=== PATIENT | male | born 1970 | race Caucasian/White ===

== ENCOUNTER → 2016-08-28 | Outpatient (CLI) | payer OTHER ==
[~2016-08-28] MED LIST: ACETTAB15 PO; AFRIN; AMLO-110 PO; ASPI81TA28 PO; ATR25 PO; BUPR-79 PO; CLR10 PO; DIPH25CA65 PO; GABA-112 PO; LISI20TA3 PO; MONT1TAB3 PO; NYSCR30 EXT; OXCA600T PO; OXCA600T2 PO; PANT40TA PO; PRAS1CAP2 PO; PRVC/40 PO; PSEU60TA80 PO
[2016-08-28 13:26] LABS: ESTIMATED AVERAGE GLUCOSE 111 mg/dl; HA1C FLAG Normal (Normal)
--- NOTE | 2016-08-28 13:39 | DIAGNOSTIC IMAGING REPORT ---
LEFT ANKLE MIN 3 VIEWS ROUTINE, LEFT FOOT MIN 3 VIEWS ROUTINE CLINICAL HISTORY: PRE-OP COMPARISON STUDY: None. FINDINGS: Soft tissue swelling within the left ankle. No fracture or dislocation within the left ankle or left foot. The Lisfranc joint remains intact. Greater than expected sclerosis within the calcaneus at the subtalar joint. IMPRESSION: Greater than expected sclerosis within the calcaneus at the subtalar joint. This raises the possibility of subtalar coalition. CT may help for confirmation if clinically wanted. Electronically signed by: Eddie Cartwright M.D. 08/28/2016 1:38 PM Dictated Date/Time: 08/28/2016 1:33 PM
[2016-08-28 13:53] LABS: BLOOD UREA NITROGEN 16 mg/dl (7-18); BUN/CREATININE RATIO 14.2 (10-20); CALCIUM 8.9 mg/dl (8.5-10.1); CARBON DIOXIDE 29 mmol/L (21-32); CHLORIDE 106 mmol/L (98-107); GLUCOSE 97 mg/dl (70-99); POTASSIUM 3.7 mmol/L (3.5-5.1); SODIUM 142 mmol/L (136-145)
--- NOTE | 2016-08-28 14:14 | DIAGNOSTIC IMAGING REPORT ---
CHEST 2 VIEWS ROUTINE HISTORY: PRE-OP COMPARISON: None. FINDINGS: A few bibasilar linear densities suggesting subsegmental atelectasis. There are low lung volumes. Cardiac silhouette is top normal in size. No pleural effusions. No pneumothorax. IMPRESSION: Low lung volumes with bibasilar subsegmental atelectasis. Otherwise, no acute process within the chest. Electronically signed by: Eddie Cartwright M.D. 08/28/2016 2:12 PM Dictated Date/Time: 08/28/2016 2:11 PM
== END | disposition home or self-care (01) ==
LOC: C.RAD 12:33
PROVIDERS: ATTEND Podiatrist Foot & Ankle Surgery
DX: Z01.811 Encounter for preprocedural respiratory examination (principal); Z01.812 Encounter for preprocedural laboratory examination; M20.12 Hallux valgus (acquired), left foot; M85.872 Other specified disorders of bone density and structure, left ankle and foot

== ENCOUNTER → 2016-08-31 | Outpatient (CLI) | payer OTHER ==
[~2016-08-31] MED LIST changes: +ACETTAB14 PO; -ACETTAB15 PO
--- NOTE | 2016-08-31 17:39 | DIAGNOSTIC IMAGING REPORT ---
MRI OF THE LEFT FOREFOOT WITHOUT IV CONTRAST CLINICAL HISTORY: Left foot pain. COMPARISON STUDY: Radiographs of the left foot dated 08/28/2016. TECHNIQUE: MRI of the left forefoot is performed utilizing various T1 and T2-weighted sequences in the axial, sagittal, and coronal planes. IV contrast was not administered for this examination. FINDINGS: There is no MRI evidence of fracture or osteonecrosis in the left forefoot. There is mild quintus varus deformity of the fifth metatarsophalangeal joint. There is mild degenerative change with marrow edema and cystic formation within the fifth metatarsal head. The remaining joint spaces of the forefoot appear preserved. There is mild edema within the lateral sesamoid at the first metatarsophalangeal joint with drop in signal on the T1 sequence suggesting sesamoiditis. The overlying soft tissues are within normal limits. The visualized flexor and extensor tendons appear maintained. The regional musculature is normal in bulk and signal intensity. Mild marrow edema is noted at the calcaneonavicular joint on survey images of the whole foot. IMPRESSION: 1. Mild quintus varus deformity at the fifth metatarsophalangeal joint with associated marrow edema and cyst formation in the fifth metatarsal head. 2. Findings suggest lateral sesamoiditis at the first metatarsophalangeal joint. 3. Mild marrow edema and degenerative change is seen at the calcaneonavicular joint on survey images of the whole foot. Dictated: 08/31/2016 5:02 PM Transcribed: 08/31/2016 5:39 PM Mel Electronically signed by: Vitor Avalos M.D. 08/31/2016 5:49 PM Dictated Date/Time: 08/31/2016 5:02 PM
== END | disposition home or self-care (01) ==
LOC: C.MRI 14:35
PROVIDERS: ATTEND Podiatrist Foot & Ankle Surgery
DX: M21.862 Other specified acquired deformities of left lower leg (principal); R60.0 Localized edema

== ENCOUNTER → 2016-09-11 | Outpatient (CLI) | payer OTHER ==
[~2016-09-11] MED LIST changes: -ACETTAB14 PO; +ACETTAB15 PO
--- NOTE | 2016-09-11 10:29 | DIAGNOSTIC IMAGING REPORT ---
CT OF THE LEFT ANKLE/FOOT CT DOSE: 172.94 mGy.cm HISTORY: CT left ankle. Abnormal MRI. LEFT SUBTO RAL JOINT TECHNIQUE: Multiaxial CT images of the left ankle were performed and reformatted in the sagittal and coronal plane without the use of contrast. COMPARISON: MRI dated 08/31/2016 FINDINGS: All osseous structures align appropriately. The subtalar joint shows a slight degree of sclerosis on a degenerative basis but there is no evidence for tarsal correlation. Mild degenerative change of the calcaneal talar joint. No significant subchondral cyst formation is present. Joint spaces are reasonably well-preserved. There is no evidence of bony ankylosis. IMPRESSION: 1. Minimal scattered degenerative change. 2. No evidence for tarsal correlation. 3. Scattered minimal degenerative sclerotic changes of the articular services as described again an early degenerative basis. Electronically signed by: Brian Sanchez M.D. 09/11/2016 10:28 AM Dictated Date/Time: 09/11/2016 10:08 AM
== END | disposition home or self-care (01) ==
LOC: C.CTS 09:39
PROVIDERS: ATTEND Podiatrist Foot & Ankle Surgery
DX: M89.8X7 Other specified disorders of bone, ankle and foot (principal)

== ENCOUNTER 2016-09-26 05:14 | Day surgery (SDC) | payer OTHER ==
[2016-09-18 15:25] VITALS: BMI 39.0
--- NOTE | 2016-09-22 16:18 | HISTORY & PHYSICAL EXAMINATION ---
DATE OF ADMISSION: 09/26/2016 PREOPERATIVE HISTORY AND PHYSICAL HISTORY OF PRESENT ILLNESS: A 46-year-old male presents for preop evaluation, requesting surgery due to painful tailor's bunion, condition is located in left foot, described as aching, sore, tender and throbbing. Condition was first noticed over a year ago. Denies any recent exposure, persistent pain event or history for this condition. Condition is graded as an 8 on a 10 point scale on the left and gradually worsening over time. Associated signs and symptoms include swelling and tenderness. He has had conservative care including strapping, cast, immobilization, oral medication, nonsteroidal injections, and insoles for over a year with little or no relief. He has had multiple conservative treatments by Dr. Lowe who sent the patient here for surgical intervention. Due to the nature and severity of this condition, the patient is requesting surgery. PAST SURGICAL HISTORY: Knee surgery, brain surgery, elbow surgery, carpal tunnel surgery on the right. PAST MEDICAL HISTORY: Hyperlipidemia, hypertension, back problems, defects, anxiety disorder, and depression. MEDICATIONS: Excedrin, loratadine, propranolol, lisinopril, Singulair, pravastatin, allergy, oxycarbazepine and gabapentin. ALLERGIES: DUST MITES AND SULFA DRUGS. FAMILY HISTORY: Arthritis, Alzheimer disease, back problems, defects, heart problems, diabetes, stroke and thyroid disease. SOCIAL HISTORY: The patient admits to tobacco use, currently does not smoke and he has had a smoking history for 8-10 years, 1 pack per day. The patient admits to alcohol use, drinking described as social. REVIEW OF SYSTEMS: Unremarkable except chief complaint. PHYSICAL EXAMINATION: VITAL SIGNS: Blood pressure 145/90, temperature 97.2, height 5 feet 9 inches, weight 265 pounds, body mass index 39. CONSTITUTIONAL: The patient appears well-developed and nourished with good attention to body grooming and habitus. HEAD AND FACE: Head is normocephalic and atraumatic without any gross head, face, or neck masses. EYES: Conjunctival and pupillary light and accommodation are normal. EARS, NOSE, MOUTH AND THROAT: Unremarkable. NECK: Supple. Trachea is midline without any adenopathy or crepitance palpable. CARDIOVASCULAR: Normal S1, S2 without murmur, gallops, rubs, or clicks noted. Cardiovascular exam is normal. RESPIRATORY: Chest is symmetric. No scars are visible. No port or pacemaker. LUNGS: Clear to auscultation bilaterally and equal. GASTROINTESTINAL: Abdominal organs, bladder, and kidneys show no abnormalities, tenderness, or rigidity. LYMPHATIC: No popliteal, inguinal, or supraclavicular lymphadenopathy noted. LOWER EXTREMITY: DP palpable, PT palpable. Digital hair is present. DERMATOLOGIC: Interphalangeal joint bilateral digit shows callus. NEUROLOGICAL: Touch, pin, vibratory, and proprioception sensations are decreased. Epicritic sensation over lateral cutaneous nerve decreased. Deep tendon reflexes normal. MUSCULOSKELETAL: Muscle tone is normal. Muscle strength is 5/5 all groups tested. MRI shows an enlarged fifth metatarsal head with dorsal lateral prominence of bone on the left. Subtalar joint range of motion shows decreased eversion. DATA: Nerve study reveals unremarkable with no evidence of distal mononeuropathy, polyneuropathy, myelopathy, and lumbosacral myopathy on 08/28/2016. Radiographic inspection of bone on August 28 reveals greater than expected sclerosis within the calcaneus subtalar joint, raising the possibility of subtalar coalition. MRI on 08/03/2006 shows Quinti varus deformity of fifth metatarsophalangeal joint, degenerative change, marrow edema and cystic formation within the fifth metatarsal head. Findings suggests lateral sesamoiditis of first metatarsophalangeal joint and mild edema and degenerative changes seen the calcaneonavicular joint. IMPRESSION: 1. Tailor's bunion. 2. Metatarsalgia secondary to lesions. 3. Neuritis lateral subcutaneous nerve on the left. 4. Difficulty walking. 5. Pain in lower extremities. 6. 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 PLAN: Conservative treatment consisting of extra depth shoes, accommodative padding, palliative debridement, steroid injection, nonsteroidals and orthotics. Procedures to be performed: 1. Exostectomy with metatarsal osteotomy, left fifth metatarsal. This will be performed under general anesthesia as an outpatient at the hospital. The procedure, risks and complications were fully reviewed with the patient. Consent form and foot diagram and illustration reviewed in all their entirety. All the patient's questions were answered. Complications were discussed in detail with the patient including pain, infection, swelling that may or may not be excessive, pins and needles feeling, numbness, metatarsalgia, excessive bleeding, delay or nonhealing of bone, delay or nonhealing of skin, enlarged scar, failure of the procedure, reoccurrence or worsening of condition that may not require further surgery, adverse reaction to anesthesia, allergic reaction to suture or other implant material, loss of toe, foot, or leg, flail toe, stiff toe, short toe, elevated toe, transfer lesion or callus, peripheral neurovascular complications such as phlebitis, damage to nerves or vascular structures, severe or chronic pain, chronic nerve pain or damage. The patient will be required to be in a surgery shoe for a minimum for 4-6 weeks and not return to dress shoe for 10-12 weeks depending on postop edema. The patient is aware this is an elective type procedure and I recommend a second opinion. The patient stated they understood and consent form was signed with a copy of the foot diagram given to the patient. Verbal and written postop instructions were given. The patient will be required to be in a surgery shoe for a minimum for 4-6 weeks and not return to dress shoe for 10-12 weeks depending on the postop edema. The patient will return to the office for postop check or sooner if medically necessary. Instructed to keep dressing clean, dry and intact until seen at the office. At time of the preoperative appointment, prescriptions for Percocet and Keflex were dispensed. LATASHA
[~2016-09-26] VITALS: Ht 175.3 cm; Wt 120.0 kg
[2016-09-26 05:45] VITALS: BP 149/100; PULSE 86; TEMP 36.4; O2SAT 98; Ht 175.3 cm; Wt 120.0 kg
[2016-09-26] MEDS ORDERED: CEFAZOLIN 3000 MG/65 ML D5W 65 ML IV SCH (06:00)
[2016-09-26] MEDS ORDERED: LACTATED RINGER'S 1000ML 1,000 ML IV SCH (06:00)
[2016-09-26] MEDS ORDERED: SODIUM CHLORIDE 0.9% 1000ML 1,000 ML IV SCH ×2 (06:00→06:57)
[2016-09-26] MEDS ORDERED: ROPIVACAINE 0.5% 5 MG/ML 30 ML VIAL ONE (06:19)
[2016-09-26] MEDS ORDERED: MIDAZOLAM HCL 1 MG/ML 2ML VIAL ONE (06:35)
[2016-09-26] MEDS ORDERED: ROCURONIUM BROMIDE 10 MG/ML 5 ML VIAL ONE (06:35)
[2016-09-26] MEDS ORDERED: FENTANYL CITRATE INJ 50 MCG/1 ML 2 ML VIAL ONE (06:35)
[2016-09-26] MEDS ORDERED: LIDOCAINE HCL 2% 2 ML VIAL (20MG/ML) ONE (06:35)
[2016-09-26] MEDS ORDERED: NEOSTIGMINE METHYLSULFATE 5 MG/5 ML SYR ONE (06:35)
[2016-09-26] MEDS ORDERED: DEXAMETHASONE SOD INJ 4 MG/ML VIAL ONE (06:35)
[2016-09-26] MEDS ORDERED: GLYCOPYRROLATE INJ 0.2 MG/ML VIAL ONE (06:35)
[2016-09-26] MEDS ORDERED: PROPOFOL IV EMULSION 10 MG/ML 20 ML VIAL IV ONE (06:35)
[2016-09-26] MEDS ORDERED: ONDANSETRON INJ 2 MG/ML 2 ML VIAL ONE (06:35)
--- NOTE | 2016-09-26 06:57 | History & Physical Bridge Note ---
H&P Re-Evaluation Bridge Note: I have examined the patient, reviewed the History & Physical and in the interval since the performance of the History & Physical I have noted the following changes of clinical significance: No changes noted
[2016-09-26] MEDS ORDERED: BUPIVACAINE 0.5 % 5 MG/1 ML MPF 30ML VIAL ONE (07:04)
--- NOTE | 2016-09-26 07:05 | Discharge Instructions ---
Discharge Instructions Date of Service Sep 26, 2016. Admission Reason for Admission: Praveen Mcpherson Discharge Discharge Diagnosis / Problem: same as above Discharge Goals Goal(s): Decrease discomfort Activity Recommendations Activity Limitations: as noted below Lifting Limitations: until after follow-up appointment Exercise/Sports Limitations: until after follow-up appointment May Resume Sexual Activity: when tolerated Shower/Bathe: keep incision dry Driving or Machine Use: not until discharged and removed from non weightbearing status Weightbearing Status: Left non-weightbearing (non weight bearing status) Medications: * Resume previous medications unless instructed by your surgeon. * Take your medications as prescribed. Call our office ([phone]) at any time, if you experience severe pain that does not subside shortly after taking your pain medication. Activity: * Do not put any standing weight on your operated foot/ankle. Use the crutches or walker as instructed. Special Care: * Keep your bandage clean and dry. Do not remove your bandage unless otherwise instructed. A small amount of blood may appear on the bandage over the surgical site. Call our office ([phone]) if you bandage becomes blood-soaked or wet. * Elevate your operated foot/ankle on pillows, above the level of your heart, as often as possible during the first 2-3 days following surgery. Keep your knee flexed slightly with a pillow under your knee when you elevate your foot/ankle. * Apply a ice bag to your foot/ankle over the operative site for 20-30 minutes out of each hour while you are awake. Do not allow the ice bag to directly contact bare skin. * Avoid bumping or handling any pins visible in your toes. If any pin feels or appears loose, call the office ([phone]). * Take your oral temperature in the morning and at bedtime. Call our office ([phone]) if your temperature rises above 101 degrees Fahrenheit. Call your surgeon's office at ([phone]) for any problems or concerns such as excessive bleeding and/or pain unrelieved by your prescribed pain medications. If you have any questions, please do not hesitate to ask them. Avoid all tobacco products. If you need help to stop smoking, call [place] FREE QUITLINE at . This is a free call. Follow-up: Follow-up with Dr. Hart . Current Hospital Diet Patient's current hospital diet: Discharge Diet Recommended Diet: Regular Diet Fluid Restriction: None Pending Studies Studies pending at discharge: no Laboratory Results Hemoglobin A1c Test 08/28/16 12:44 Range/Units Estimated Average Glucose 111 mg/dl Hemoglobin A1c 5.5 4.5-5.6 % Medical Emergencies . Who to Call and When: Medical Emergencies: If at any time you feel your situation is an emergency, please call 911 immediately. . Non-Emergent Contact Non-Emergency issues call your: Primary Care Provider Call Non-Emergent contact if: you have a fever . "Provider Documentation" section prepared by Bel Gandhi. VTE Core Measure Inpt VTE Proph given/why not?: Treatment not indicated [place] Drug Monitoring Program Search Results: no issues identified
[2016-09-26] MEDS ORDERED: FENTANYL CITRATE INJ 50 MCG/1 ML 2 ML VIAL IV PRN (08:00)
[2016-09-26] MEDS ORDERED: EpHEDrine SULFATE INJ 50 MG/ML AMP IV PRN (08:00)
[2016-09-26] MEDS ORDERED: HYDROmorphone INJ 1 MG/ML SYR IV PRN (08:00)
[2016-09-26] MEDS ORDERED: ATROPINE SULFATE 0.1 MG/ML 5ML SYR IV PRN (08:00)
[2016-09-26] MEDS ORDERED: ONDANSETRON INJ 2 MG/ML 2 ML VIAL IV PRN (08:00)
[2016-09-26] MEDS ORDERED: LABETALOL HCL IV 5 MG/ML 20ML IV ONE ×2 (09:12→09:24)
--- NOTE | 2016-09-26 09:19 | OPERATIVE REPORT ---
DATE OF OPERATION: 09/26/2016 PREOPERATIVE DIAGNOSES: Tailor's bunion left foot, capsulitis left fifth metatarsophalangeal joint. POSTOPERATIVE DIAGNOSES: Same. PROCEDURES: Exostectomy with metatarsal osteotomy, left fifth metatarsal. SURGEON: Dr. Hart. ANESTHESIA: General with regional field block performed by anesthesia. HEMOSTASIS: Pneumatic ankle tourniquet inflated to 250 mmHg for a total tourniquet time of 44 minutes. ESTIMATED BLOOD LOSS: Minimal. MATERIALS: 1.5 screws x3 from the Synthes modular handset measuring 10, 12 and 12, 2-0 3-0 Vicryl, 4-0 nylon. FINDINGS: Cystic metatarsal head and neck upon removal of the exostosis lateral fifth metatarsal. INJECTABLES: None. COMPLICATIONS: None. The patient tolerated the procedure and anesthesia well without complications, transferred to recovery room with vital signs stable and neurovascular status intact. PROCEDURE: The patient was brought to the OR and placed on the OR table in supine position. Upon completion a regional block performed in the anesthesia holding area and general anesthesia. The extremity was scrubbed, prepped and draped in the usual aseptic fashion. A well-padded tourniquet was also applied prior to prep. Attention was directed to the dorsal lateral aspect of the left foot where a linear incision was made directly over the fifth metatarsophalangeal joint with care to preserve all neurovascular structures. Dissection was carried down to the level of the capsular structures. A long linear capsulotomy was performed which revealed an enlarged exostosis laterally. This was removed using a sagittal saw. Upon removal of the exostosis there was cyst noted in the fifth metatarsal and neck region over the head and neck. Osteotomy was positioned not to be involved with the cyst. Osteotomy was created and intermetatarsal angle was angulated with a slight plantar of the fifth metatarsal head to accommodate for any shortening from dorsal lateral to plantar medial of the axis of the osteotomy. Capital fragment was transposed in lateral direction and temporarily fixated with a 0.035 K-wires. Three Synthes screws, 1 medially, 1 laterally and 1 centrally was placed in typical lag fashion 1.5 modular handset. Temporary fixation was removed and the osteotomy was found to be stable. The wound was copiously lavaged with normal saline. Closure began in the deep structures using 2-0 Vicryl. Superficial deep structures closed using 3-0 Vicryl in a box stitch technique. Skin margins closed with 4-0 nylon. Dry sterile compressive dressing consisting of Adaptic, 4 x 4s, Milagro and an Hank was applied. The patient tolerated the procedure and anesthesia well without complications, transferred to recovery room with vital signs stable and neurovascular status intact. I attest to the content of the Intraoperative Record and any orders documented therein. Any exceptio ns are noted below.
--- NOTE | 2016-09-26 09:25 | DIAGNOSTIC IMAGING REPORT ---
LEFT FOOT MIN 3 VIEWS ROUTINE CLINICAL HISTORY: postop COMPARISON: 08/28/2016 DISCUSSION: There are postsurgical changes of a fifth metatarsal osteotomy. There are 3 screws at the level of the osteotomy site. There is overlying bandage. IMPRESSION: Postsurgical changes of a distal fifth metatarsal osteotomy Electronically signed by: Jean Carlos Daley M.D. 09/26/2016 9:22 AM Dictated Date/Time: 09/26/2016 9:19 AM
--- NOTE | 2016-09-26 09:28 | DIAGNOSTIC IMAGING REPORT ---
INTRAOPERATIVE LEFT FOOT 2 VIEWS CLINICAL HISTORY: LEFT FOOT EXOSTECTOMY WITH 5TH METATARSAL OSTEOTOMY COMPARISON STUDY: 08/28/2016 FINDINGS: 2 intraoperative fluoroscopic spot images are provided for interpretation. 3 seconds of fluoroscopic time was utilized. There are postsurgical changes of a distal fifth metatarsal osteotomy. 3 screws are visualized. IMPRESSION: Intraoperative radiographs demonstrating distal fifth metatarsal osteotomy. Electronically signed by: Jean Carlos Daley M.D. 09/26/2016 9:25 AM Dictated Date/Time: 09/26/2016 9:24 AM
--- NOTE | 2016-09-26 09:31 | Anesthesiology Progress Note ---
Anesthesia Post Op Note Date & Time Sep 26, 2016 at 09:30 Vital Signs Pain Intensity: 0 Vital Signs Past 12 Hours Date Time Temp Pulse Resp B/P Pulse Ox O2 Delivery O2 Flow Rate FiO2 09/26/16 09:20 36.3 71 18 152/96 95 Room Air 09/26/16 09:10 72 16 152/103 94 Room Air 09/26/16 09:00 84 16 166/102 94 Room Air 09/26/16 08:50 80 16 154/105 100 Mask 10 09/26/16 08:40 92 16 144/92 100 Mask 10 09/26/16 08:31 36.5 97 16 140/99 100 Mask 10 09/26/16 05:45 36.4 86 18 149/100 98 Room Air Notes Mental Status: alert / awake / arousable, participated in evaluation Pt Amnestic to Procedure: Yes Nausea / Vomiting: adequately controlled Pain: adequately controlled Airway Patency, RR, SpO2: stable & adequate BP & HR: stable & adequate Hydration State: stable & adequate Anesthetic Complications: no major complications apparent
[2016-09-26 09:45] VITALS: BP 147/98; PULSE 66; TEMP 36.9; O2SAT 95
[2016-09-26 09:55] VITALS: BP 142/98; PULSE 74; O2SAT 95
[2016-09-26 10:35] VITALS: BP 145/95; PULSE 73; TEMP 36.4; O2SAT 95
== END 2016-09-26 10:45 | disposition home or self-care (01) ==
LOC: C.ACU 05:14
PROVIDERS: ATTEND Podiatrist Foot & Ankle Surgery
DX: M21.622 Bunionette of left foot (principal); M77.52 Other enthesopathy of left foot and ankle; I10 Essential (primary) hypertension; E78.5 Hyperlipidemia, unspecified; M19.90 Unspecified osteoarthritis, unspecified site; F32.9 Major depressive disorder, single episode, unspecified; F41.9 Anxiety disorder, unspecified; Z98.890 Other specified postprocedural states; E66.9 Obesity, unspecified; Z68.39 Body mass index [BMI] 39.0-39.9, adult; Z88.2 Allergy status to sulfonamides; Z81.8 Family history of other mental and behavioral disorders; Z82.49 Family history of ischemic heart disease and other diseases of the circulatory system; Z83.3 Family history of diabetes mellitus; Z82.3 Family history of stroke; Z87.891 Personal history of nicotine dependence

== ENCOUNTER → 2017-02-22 | Outpatient (CLI) | payer OTHER ==
[~2017-02-22] MED LIST changes: +ACETTAB14 PO; -ACETTAB15 PO
--- NOTE | 2017-02-22 12:39 | DIAGNOSTIC IMAGING REPORT ---
LEFT LOWER EXTREMITY WITHOUT CLINICAL HISTORY: 46 years-old Male presenting with POST OP, MULTIPLE FALLS, status post left foot osteotomy. TECHNIQUE: Multidetector CT of the left foot was performed without the use of intravenous contrast. IV contrast: None. A dose lowering technique was used consistent with the principles of ALARA (as low as reasonably achievable). COMPARISON: Correlation made to plain radiographs from 09/26/2016. CT DOSE (mGy.cm): The estimated cumulative dose is 214.50 mGy.cm. FINDINGS: [employer] Deboner topogram: 3 screw fixation of the fifth metatarsal neck. Disuse osteopenia evident. 3 screw fixation across the fifth metatarsal neck with associated deformity from reported osteotomy. The oblique sagittally oriented osteotomy plane remains evident with incomplete bony bridging. Allowing for osteopenia, no acute fracture. No subluxation. Degenerative changes at the first interphalangeal joint suggested. Ankle mortise intact. IMPRESSION: 1. 3 screw fixation across the reported osteotomy at the neck of the fifth metatarsal. A fracture plane remains evident with incomplete bony bridging. 2. Disuse osteopenia. Electronically signed by: García Melgar M.D. 02/22/2017 12:38 PM Dictated Date/Time: 02/22/2017 12:34 PM
== END | disposition home or self-care (01) ==
LOC: C.CTS 12:02
PROVIDERS: ATTEND Podiatrist Foot & Ankle Surgery
DX: M85.872 Other specified disorders of bone density and structure, left ankle and foot (principal); Z91.81 History of falling; Z98.890 Other specified postprocedural states

== ENCOUNTER → 2017-07-20 | Outpatient (CLI) | payer OTHER ==
[~2017-07-20] MED LIST changes: -ACETTAB14 PO; +ACETTAB15 PO; +GADAVIST IV PRN
--- NOTE | 2017-07-20 13:57 | DIAGNOSTIC IMAGING REPORT ---
L LOWER EXT NONJOINT COMBO HISTORY: 46 years-old Male LEFT FOOT PAIN,EVAL OSTEOTOMY LEFT 5TH METATARSAL chronic left foot pain, most pronounced within the region of the fifth digit with history of prior surgery. Prior left distal fifth metatarsal osteotomy COMPARISON: Left lower cavity CT 02/22/2017, left foot radiographs 09/26/2016 TECHNIQUE: MRI of the left lower extremity was obtained both with and without the use of 11.5 mL Gadavist FINDINGS: The large field view rehabilitation supervisor localizer images demonstrate no gross abnormality. Postoperative changes from prior osteotomy again noted involving the distal metadiaphyseal portion of the left fifth metatarsal. Mild apex lateral angulation at the osteotomy site is again noted of approximately 18 degrees. Micrometallic artifact from the hardware limits evaluation. There is no focal bone marrow edema, significant soft tissue edema or acute bony fracture identified. Skin marker is noted lateral to the fifth MTP joint. The MCP joint appears to be unremarkable. Minimal degenerative changes of the first MTP joint. Plantar plates appear intact. There is no evidence of plantar plate injury, intermetatarsal bursitis or perineural fibrosis (Mike neuroma). Imaged flexor and extensor tendons appear intact. No tenosynovitis identified. No soft tissue fluid collections. There is no abnormal enhancement identified. Lisfranc ligament is identified and appears intact. IMPRESSION: 1. Postoperative changes from prior osteotomy involving the distal metadiaphyseal portion of the fifth metatarsal. Mild apex lateral angulation of 18 degrees appears unchanged from prior. There is no evidence of acute fracture, focal bone marrow or soft tissue edema. 2. Minimal degenerative changes of the first MTP joint. The above report was generated using voice recognition software. It may contain grammatical, syntax or spelling errors. Electronically signed by: Lucas Hatfield M.D. 07/20/2017 1:56 PM Dictated Date/Time: 07/20/2017 1:40 PM
== END | disposition home or self-care (01) ==
LOC: C.MRI 11:51
PROVIDERS: ATTEND Podiatrist Foot & Ankle Surgery
DX: M79.672 Pain in left foot (principal); M79.671 Pain in right foot; Z98.890 Other specified postprocedural states